=== PATIENT | male | born 1990 | race Caucasian/White ===

== ENCOUNTER 2017-02-11 19:36 | Emergency (ER) | payer BC, OTHER ==
[~2017-02-11] VITALS: Ht 160 cm; Wt 74.5 kg
[~2017-02-11 19:36] MED LIST: NAPR-260
[2017-02-11 19:48] VITALS: Ht 160 cm; Wt 74.5 kg
[2017-02-11] MEDS ORDERED: IBUP-1542 PO (20:28)
[2017-02-11] MEDS ORDERED: IBUPROFEN 800 MG TAB PO ONE (20:30)
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
== END 2017-02-11 21:52 | disposition home or self-care (01) ==
LOC: FTE 19:36
DX: S60.812A Abrasion of left wrist, initial encounter (principal); S39.92XA Unspecified injury of lower back, initial encounter; S19.9XXA Unspecified injury of neck, initial encounter; F17.210 Nicotine dependence, cigarettes, uncomplicated; V49.49XA Driver injured in collision with other motor vehicles in traffic accident, initial encounter
CPT/HCPCS: 99283

== ENCOUNTER 2019-06-23 23:48 | Emergency (ER) | payer OTHER ==
[~2019-06-23] VITALS: Ht 177.8 cm; Wt 75.0 kg
[~2019-06-23 23:48] MED LIST changes: +IBUP-1542 PO; -NAPR-260; +NAPR-985; +NAPR-985 PO
[2019-06-24 00:03] VITALS: BP 143/60; PULSE 64; RESP 21; Ht 177.8 cm; Wt 75.0 kg
[2019-06-24] MEDS ORDERED: IBUPROFEN 600 MG TAB PO ONE (00:30)
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
== END 2019-06-24 02:02 | disposition home or self-care (01) ==
LOC: FTE 23:48
DX: S82.451A Displaced comminuted fracture of shaft of right fibula, initial encounter for closed fracture (principal); F17.210 Nicotine dependence, cigarettes, uncomplicated; W01.0XXA Fall on same level from slipping, tripping and stumbling without subsequent striking against object, initial encounter; Y92.9 Unspecified place or not applicable
CPT/HCPCS: 93971